=== PATIENT | male | born 1975 | race Caucasian/White ===

== ENCOUNTER 2016-10-17 17:41 | Emergency (ER) | payer BC, OTHER ==
[2016-10-17 18:35] VITALS: BP 143/79
--- NOTE | 2016-10-17 20:12 | UC ---
Laceration HPI - HPI Summary HPI Summary: laceration dorsal hand left 2 nd finger dip at 1300 today on a piece of sheet metal - History Of Current Complaint Chief Complaint: UCLaceration Stated Complaint: LACERATION LEFT INDEX FINGER Time Seen by Provider: 10/17/16 20:07 Hx Obtained From: Patient Laceration Location: Hand Mechanism Of Injury: Sharp Trauma Onset/Duration: Sudden Onset Severity: Mild Pain Intensity: 0 Pain Scale Used: 0-10 Numeric Aggravating Factors: Nothing Related History: Occupational Injury, Dominant Hand Right - Allergies/Home Medications Allergies/Adverse Reactions: Allergies Allergy/AdvReac Type Severity Reaction Status Date / Time No Known Allergies Allergy Verified 10/17/16 18:35 Home Medications: Home Medications NK [No Home Medications Reported] 10/17/16 [History Confirmed 10/17/16] PMH/Surg Hx/FS Hx/Imm Hx Previously Healthy: Yes Endocrine History Of: Denies: Diabetes, Thyroid Disease Cardiovascular History Of: Denies: Cardiac Disorders Respiratory History Of: Denies: Asthma - Surgical History Surgical History: None - Family History Known Family History: Positive: Diabetes - Social History Occupation: Employed Full-time Lives: With Family Alcohol Use: Occasionally Substance Use Type: None Smoking Status (MU): Current Every Day Smoker Type: Smokeless Tobacco Amount Used/How Often: 1 can q 2 days Length of Time of Smoking/Using Tobacco: started smoking 1999/ quit in 2012 and p/u chewing When Did the Patient Quit Smoking/Using Tobacco: 2012 Cessation Counseling: Patient Advised to Stop - Immunization History Most Recent Tetanus Shot: 06/27/13 Review of Systems Constitutional: Negative Skin: Negative, Other - 1.5 cm linear laceration over dip 2nd l finger, no bleeding wound well approximated n/m/c intact distally Eyes: Negative ENT: Negative Respiratory: Negative Cardiovascular: Negative Gastrointestinal: Negative Genitourinary: Negative Motor: Negative Neurovascular: Negative Musculoskeletal: Negative Neurological: Negative Psychological: Negative All Other Systems Reviewed And Are Negative: Yes Physical Exam Triage Information Reviewed: Yes Appearance: Well-Appearing, No Pain Distress, Well-Nourished Vital Signs: Initial Vital Signs Temp 98.3 F 10/17/16 18:29 Pulse 78 10/17/16 18:29 Resp 16 10/17/16 18:29 BP 143/79 10/17/16 18:29 Pulse Ox 99 10/17/16 18:29 Vital Signs Reviewed: Yes Eye Exam: Normal Eyes: Positive: Conjunctiva Clear ENT Exam: Normal ENT: Positive: Normal ENT inspection, Hearing grossly normal, TMs normal. Negative: Nasal congestion, Nasal drainage, Tonsillar swelling, Tonsillar exudate, Trismus, Muffled/hoarse voice Dental Exam: Normal Neck exam: Normal Neck: Positive: Supple, Nontender Respiratory Exam: Normal Respiratory: Positive: No respiratory distress, No accessory muscle use Cardiovascular Exam: Normal Cardiovascular: Positive: RRR, Pulses Normal, Brisk Capillary Refill Musculoskeletal Exam: Normal Musculoskeletal: Positive: Strength Intact, ROM Intact, No Edema Neurological Exam: Normal Neurological: Positive: Alert, Muscle Tone Normal Psychological Exam: Normal Skin Exam: Normal Laceration Repair - Laceration Repair 1 Description: Linear Laceration Size After Repair: Length (cm) - 1.5, Width (mm) - 1, Depth (mm) - 2 Modified For Repair: No Cleansing Completed Via Routine Prep: Yes Irrigation With Pressure Irrigation Device: Yes Closure Material: Skin Adhesive, SteriStrips Laceration Course/Dx - Course/Dx Course Of Treatment: steri-strip and glue care, bandage splint, for 7-10 day follow with pcp prn - Differential Dx - Laceration/Wound Differental Diagnoses: Healing Wound, Laceration, Tendon Laceration Provider Diagnoses: Laceration left 2nd finger with glue and steri closure Discharge - Discharge Plan Condition: Stable Disposition: HOME Patient Education Materials: Finger Laceration (ED), Skin Adhesive Care (ED) [place]errals: [facility] [place] [facility] [place]] - If Needed No Primary Care Phys,NOPCP [Primary Care Provider] -
== END 2016-10-17 20:31 | disposition home or self-care (01) ==
LOC: UCCORT 17:41
DX: S61.211A Laceration without foreign body of left index finger without damage to nail, initial encounter (principal); W45.8XXA Other foreign body or object entering through skin, initial encounter; Y93.89 Activity, other specified; Y92.89 Other specified places as the place of occurrence of the external cause; Y99.0 Civilian activity done for income or pay; F17.210 Nicotine dependence, cigarettes, uncomplicated
CPT/HCPCS: 12001; 99211; G0463

== ENCOUNTER → 2019-01-31 17:35 | Emergency (ER) | payer SELFPAY | END | disposition home or self-care (01) | LOC: OHCORT 17:35 | DX: Z00.00 Encounter for general adult medical examination without abnormal findings (principal) ==